=== PATIENT | male | born 1950 | race African-American/Black ===

== ENCOUNTER 2017-01-28 12:40 | Outpatient (CLI) | payer MEDICARE ==
[2017-01-28 14:36] LABS: ALT (SGPT) 13 U/L (8-55); AST (SGOT) 8 U/L (5-34); Albumin 3.9 g/dL (3.4-4.8); Alkaline Phosphatase 89 U/L (40-150); Anion Gap 17 mmol/L (10-20); BUN (Urea Nitrogen) 10 mg/dL (8.4-25.7); Bilirubin, Direct 0.3 mg/dL (0.1-0.3); Bilirubin, Total 0.7 mg/dL (0.2-1.2); Calc. Creatinine Clearance 0 mL/min (70-130); Calcium 9.1 mg/dL (7.8-10.44); Carbon Dioxide 25 mmol/L (23-31); Chloride 102 mmol/L (98-107); Estimated GFR-MDRD Greater than 90; Glucose 133 mg/dL (80-115); Protein, Total 6.7 g/dL (5.8-8.1); Sodium 140 mmol/L (136-145)
[2017-01-28 21:55] LABS: Eosinophils 4 % (0-10); Hemoglobin 12.7 g/dL (14.0-18.0); Hypochromia SLIGHT = 6-15 cells (100X) (0-5/hpf); Lymphocytes 56 % (21-51); MDiff Complete? YES; Mean Corpuscular HGB CONC 30.4 g/dL (32.0-36.0); Mean Corpuscular Hemoglobin 24.2 pg (27.0-31.0); Mean Corpuscular Volume 79.6 fl (80.0-94.0); Mean Platelet Volume 8.1 fL (7.4-10.4); Microcytosis SLIGHT = 6-15 cells (100X) (0-5/hpf); Monocytes 1 % (0-10); Neutrophil 39 % (42-75); PLT Morphology Comment Appears Adequate; Platelet Count 259 thou/uL (130-400); RBC Distribution Width 12.4 % (11.5-14.5); Red Blood Cell (RBC) Count 5.23 mill/uL (4.70-6.10); White Blood Cell (WBC) Count 20.7 thou/uL (4.8-10.8)
[2017-01-28 22:28] LABS: Bilirubin Negative (Negative); Blood, Urine Negative (Negative); Clarity Clear (Clear); Glucose, Urine (Dipstick) Negative (Negative); Leukocyte Negative (Negative); Nitrite Negative (Negative); Protein, Urine (Dipstick) Trace mg/dL (Neg-Trace); Urobilinogen 0.2 mg/dL (0.2-1.0); pH, Urine 5.5 (5.0-9.0)
[2017-01-28 22:51] LABS: RBC/HPF 0-3 HPF (0-3)
[2017-01-28 22:52] LABS: Bacteria/HPF None Seen HPF (None Seen); Squamous Epithelial None Seen HPF (0-3); WBC/HPF None Seen HPF (0-3)
== END 2017-01-28 12:41 | disposition home or self-care (01) ==
LOC: NAV LAB 12:40
PROVIDERS: ATTEND Urology
DX: C61 Malignant neoplasm of prostate (principal); R35.0 Frequency of micturition; N52.9 Male erectile dysfunction, unspecified
CPT/HCPCS: 71020; 80048; 80076; 81001; 84153; 85025; 87086

== ENCOUNTER 2017-01-28 13:14 | Outpatient (CLI) | payer MEDICARE ==
--- NOTE | 2017-01-29 07:37 | RAD ---
2 VIEWS CHEST: Date: )01/28/17 HISTORY: Malignant neoplasm of prostate. FINDINGS: PA and lateral views of the chest are obtained. The lungs are well aerated. No evidence of active in trathoracic disease seen. No evidence of effusions, pneumonia, or pneumothorax seen. IMPRESSION: Normal 2 views of chest. POS: [facility]
== END 2017-01-28 13:15 | disposition home or self-care (01) ==
LOC: NAV RAD 13:14
PROVIDERS: ATTEND Urology
DX: C61 Malignant neoplasm of prostate (principal); C64.2 Malignant neoplasm of left kidney, except renal pelvis; R35.0 Frequency of micturition; N52.9 Male erectile dysfunction, unspecified
CPT/HCPCS: 71020

== ENCOUNTER 2020-03-07 10:22 | Outpatient (CLI) | payer MEDICARE ==
--- NOTE | 2020-03-07 11:01 | RAD ---
PA AND LATERAL VIEWS CHEST: HISTORY: Renal and prostate cancer. COMPARISON: 09/02/2018. FINDINGS: The heart size is normal. The lungs are expanded without focal areas of consolidation, pneumothorace s, or pleural effusions. No acute osseous abnormalities are seen. IMPRESSION: Stable exam. No acute process. POS: OFF
== END 2020-03-07 10:23 | disposition home or self-care (01) ==
LOC: NAV RAD 10:22
PROVIDERS: ATTEND Urology
DX: C61 Malignant neoplasm of prostate (principal); C64.2 Malignant neoplasm of left kidney, except renal pelvis; R31.29 Other microscopic hematuria; N37 Urethral disorders in diseases classified elsewhere; R35.0 Frequency of micturition; Z90.5 Acquired absence of kidney
CPT/HCPCS: 71046